=== PATIENT | female | born 1975 | race American Indian/Alaskan Native ===

== ENCOUNTER 2023-05-31 21:19 | Emergency (ER) | payer OTHER ==
[~2023-05-31] VITALS: Ht 170.2 cm; Wt 79.6 kg
[~2023-05-31 21:19] MED LIST: ACETAMINOPHEN650 M1 PO; ACYCLOVIR200 MG PO; ALPRAZOLAM0.5 MG PO; ASCORBIC ACID500 MG PO; ASPIR-TRIN325 MG PO; BACTRIM DS TAB1 EACH PO; CYCLOBENZAPRINE10 MG PO; DILAUDID4 MG PO; DOXYCYCLINE HY100 MG PO; FEROSUL325 MG PO; FISH OIL 1,0001 EAC2 PO; FLECTOR1 EACH TOP; FLEXERIL10 MG PO; HYDROCODON-ACE1 EAC8 PO; HYDROMORPHONE HC4 MG PO; IBUPROFEN600 MG PO; IBUPROFEN800 MG PO; LEVAQUIN500 MG PO; MAGNESIUM400 MG PO; MAGNESIUM500 MG PO; METHOCARBAMOL750 MG PO; MILK OF MA400 MG/5 M PO; MIRALAX17 GM PO; NORCO 10-325 T1 EACH PO; NORCO 5-325 TA1 EACH PO; OMEPRAZOLE20 MG PO; OXYCODONE HCL20 M1 PO; OXYCODONE HCL5 MG PO; POTASSIUM CHLO10 MEQ PO; TIZANIDINE HCL4 MG PO; TRAZODONE HCL50 MG PO; VITAMIN C PO; VITAMIN D1000 UNI1 PO; VITAMIN D35000 UNI1 PO; VITAMIN D35000 UNIT PO; WELLBUTRIN SR100 MG PO; WELLBUTRIN SR200 MG PO; XARELTO10 MG PO; ZANAFLEX4 M1 PO; ZOFRAN ODT4 MG SL; [UNRECOGNIZED DRUG - OTHER] PO
--- OUTSIDE RECORDS SUMMARY | 2023-05-31 21:26 | XMS ---
PreManage Notification: RADHA DAMIAN Security Director Workforce Management Events No recent Security Events currently on file CRITERIA MET - [facility] - 2 Visits in 30 Days CARE PROVIDERS There are no care providers on record at this time. Christen has no Care Guidelines for this patient. [facility] (12 MO.) [facility] [address] [place] [address] H. TOTAL 3 NOTE: Visits indicate total known visits. ED/UCC VISIT TRACKING (12 MO.) 05/31/2023 21:20 [facility] TYPE: Emergency COMPLAINT: - MEDICAL CLEARANCE 05/31/2023 18:[address] [facility] TYPE: Emergency COMPLAINT: - POSS UTI 12/29/2022 04:11 [facility] TYPE: Emergency COMPLAINT: - right knee pain DIAGNOSES: - Pain in left knee - Pain in right knee INPATIENT VISIT TRACKING (12 MO.) No inpatient visits to display in this time frame [email or web address]
[2023-05-31 22:47] LABS: BILIRUBIN, URINE NEGATIVE (negative); BLOOD/HGB, URINE LARGE (Negative); KETONE, URINE NEGATIVE (Negative); LEUK ESTERASE, URINE MODERATE (negative); NITRITE, URINE POSITIVE (negative); PH, URINE 6.5 (5-7)
[2023-05-31 22:58] LABS: BACTERIA, URINE 1+ /hpf (negative); CASTS, URINE NONE SEEN \\lpf; CRYSTALS, URINE NONE SEEN (0-1+); EPITHELIAL CELLS, URINE SQUAMOUS 2+ /lpf (0-1+); WHITE BLOOD CELLS, URINE 41-50 /HPF (0-5)
[2023-05-31 22:59] LABS: COLLECTION TYPE, URINE CLEAN CATCH; REFLEX CULTURE, URINE No (No)
[2023-05-31] MEDS ORDERED: CEPHALEXIN MONOHYDRATE 500 MG HOME.PACK PO ONE (23:15)
[2023-05-31] MEDS ORDERED: CEPHALEXIN500 M1 PO (23:17)
[2023-05-31] MEDS ORDERED: ONDANSETRON ODT8 MG PO (23:17)
[2023-05-31] MEDS ORDERED: ONDANSETRON 4 MG HOME.PACK SL ONE (23:30)
[2023-05-31 23:39] VITALS: BP 132/81
[2023-05-31 23:39] LABS: AMPHETAMINES, URINE POSITIVE (NEGATIVE); BARBITURATES, URINE NEGATIVE (NEGATIVE); BENZODIAZEPINE, URINE NEGATIVE (NEGATIVE); BUPRENORPHINE, URINE NEGATIVE (NEGATIVE); CANNABINOID, URINE POSITIVE (NEGATIVE); COCAINE, URINE NEGATIVE (NEGATIVE); ECSTASY, URINE NEGATIVE (NEGATIVE); FENTANYL, URINE POSITIVE (NEGATIVE); METHADONE, URINE NEGATIVE (NEGATIVE); OPIATES, URINE NEGATIVE (NEGATIVE); OXYCODONE, URINE NEGATIVE (NEGATIVE); PHENCYCLIDINE, URINE NEGATIVE (NEGATIVE)
== END 2023-05-31 23:41 | disposition home or self-care (01) ==
LOC: ED 21:19
PROVIDERS: Emergency Medicine
DX: N39.0 Urinary tract infection, site not specified (principal); Z87.891 Personal history of nicotine dependence; Z79.899 Other long term (current) drug therapy
CPT/HCPCS: 80307; 81001; 99283; A9270